=== PATIENT | female | born 1940 | race Caucasian/White ===

== ENCOUNTER 2017-11-11 08:17 | Emergency (ER) | payer MEDICARE ==
[~2017-11-11] VITALS: Ht 154.9 cm; Wt 74.8 kg
[~2017-11-11 08:17] MED LIST: ACEBUTOLOL HCL200 MG PO; LOSARTAN POTAS100 MG PO
[2017-11-11] MEDS ORDERED: CLONIDINE HCL 0.1 MG TAB PO ONE (08:30)
[2017-11-11 09:54] VITALS: BP 150/71
== END 2017-11-11 09:58 | disposition home or self-care (01) ==
LOC: ER 08:17
DX: I10 Essential (primary) hypertension (principal)
CPT/HCPCS: 99282

== ENCOUNTER 2017-12-26 10:18 | Emergency (ER) | payer MEDICARE ==
[~2017-12-26] VITALS: Ht 154.9 cm; Wt 75.3 kg
== END 2017-12-26 10:52 | disposition home or self-care (01) ==
LOC: FSED 10:18
DX: M54.5 Low back pain (principal); S39.012A Strain of muscle, fascia and tendon of lower back, initial encounter; G89.29 Other chronic pain
CPT/HCPCS: 81003; 99283

== ENCOUNTER 2021-07-15 17:07 | Emergency (ER) | payer MEDICARE ==
[~2021-07-15] VITALS: Ht 154.9 cm; Wt 75.3 kg
[2021-07-15 18:26] LABS: BASOPHILS # (AUTO) 0.1 (0.0-0.1); BASOPHILS % 0.9 % (0.0-1.0); EOSINOPHILS % 0.5 % (0.0-6.0); HEMATOCRIT 38.9 % (34.2-44.1); HEMOGLOBIN 12.5 g/dL (12.0-16.0); LYMPHOCYTES # (AUTO) 1.1 (1.0-3.2); LYMPHOCYTES % 15.8 % (18.0-39.1); MEAN CORPUSCULAR HGB CONC 32.1 g/dL (31-35); MEAN CORPUSCULAR VOLUME 99.5 fL (81-99); MONOCYTES # (AUTO) 0.5 (0.2-0.8); MONOCYTES % 7.4 % (4.4-11.3); NEUTROPHILS % 75.2 % (38.7-80.0); PLATELET COUNT 193 x10e3/uL (140-360); RED BLOOD COUNT 3.91 x10e6/uL (3.6-5.1); RED CELL DISTRIBUTION WIDTH 13.5 % (11.7-14.4)
[2021-07-15 18:47] LABS: ALBUMIN 3.7 g/dL (3.5-5.0); ALBUMIN/GLOBULIN RATIO 1.2 (0.8-2.0); CALCIUM 9.4 mg/dL (8.4-10.2); CREATININE, SERUM 1.14 mg/dL (0.57-1.11)
[2021-07-15 18:53] LABS: CREATINE KINASE MB 4.4 ng/mL (0-5.0)
[2021-07-15 18:56] LABS: CLARITY,URINE SL CLOUDY (CLEAR); COLOR,URINE YELLOW (YELLOW); KETONES,URINE TRACE (NEGATIVE); LEUKOCYTE ESTERASE ,URINE SMALL (NEGATIVE); NITRITE,URINE NEGATIVE (NEGATIVE); PROTEIN,URINE DIPSTICK NEGATIVE (NEGATIVE); URINE UROBILINOGEN 0.2 mg/dL (0.2 - 1)
[2021-07-15 19:11] LABS: BACTERIA,URINE MODERATE /HPF; EPITHELIAL CELLS,URINE MODERATE /LPF
== END 2021-07-15 19:48 | disposition home or self-care (01) ==
LOC: ER 17:52
DX: R51.9 Headache, unspecified (principal); N39.0 Urinary tract infection, site not specified
CPT/HCPCS: 36415; 70450; 71045; 80053; 81001; 82550; 82553; 84484; 85025; 93005; 99284

== ENCOUNTER 2021-12-29 10:29 | Emergency (ER) | payer MEDICARE ==
[~2021-12-29] VITALS: Ht 152.4 cm; Wt 63.5 kg
[2021-12-29] MEDS ORDERED: MECLIZINE HCL 12.5 MG TAB PO ONE (10:45)
[2021-12-29 10:58] LABS: BASOPHILS # (AUTO) 0.1 (0.0-0.1); BASOPHILS % 0.7 % (0.0-1.0); EOSINOPHILS # (AUTO) 0.1 (0.0-0.4); EOSINOPHILS % 0.9 % (0.0-6.0); HEMATOCRIT 37.5 % (34.2-44.1); HEMOGLOBIN 11.9 g/dL (12.0-16.0); LYMPHOCYTES # (AUTO) 0.9 (1.0-3.2); LYMPHOCYTES % 12.4 % (18.0-39.1); MEAN CORPUSCULAR HEMOGLOBIN 31.6 pg (28-32); MEAN CORPUSCULAR HGB CONC 31.7 g/dL (31-35); MEAN CORPUSCULAR VOLUME 99.5 fL (81-99); MONOCYTES # (AUTO) 0.5 (0.2-0.8); MONOCYTES % 7.3 % (4.4-11.3); NEUTROPHILS # (AUTO) 5.8 (2.1-6.9); NEUTROPHILS % 78.4 % (38.7-80.0); PLATELET COUNT 219 x10e3/uL (140-360); RED BLOOD COUNT 3.77 x10e6/uL (3.6-5.1); RED CELL DISTRIBUTION WIDTH 13.2 % (11.7-14.4)
[2021-12-29 11:04] LABS: CLARITY,URINE CLEAR (CLEAR); COLOR,URINE YELLOW (YELLOW); KETONES,URINE NEGATIVE (NEGATIVE); LEUKOCYTE ESTERASE ,URINE SMALL (NEGATIVE); NITRITE,URINE NEGATIVE (NEGATIVE); PROTEIN,URINE DIPSTICK NEGATIVE (NEGATIVE); URINE UROBILINOGEN 0.2 mg/dL (0.2 - 1)
[2021-12-29 11:20] LABS: INR 1.04; PROTHROMBIN TIME 14.5 seconds (11.9-14.5)
[2021-12-29 11:21] LABS: ALBUMIN 3.4 g/dL (3.5-5.0); ALBUMIN/GLOBULIN RATIO 0.9 (0.8-2.0); ANION GAP 13.1 mmol/L (8-16); CALCIUM 9.4 mg/dL (8.4-10.2); CREATININE, SERUM 1.04 mg/dL (0.57-1.11); POTASSIUM 4.1 mmol/L (3.5-5.1)
[2021-12-29 11:23] LABS: BACTERIA,URINE FEW /HPF; EPITHELIAL CELLS,URINE RARE /LPF
[2021-12-29] MEDS ORDERED: IOPAMIDOL 370 MG/ML 100 ML INFUS..BTL INJ ONE (11:40)
[2021-12-29] MEDS ORDERED: SODIUM CHLORIDE 0.9% 500ML 500 ML IV STA (11:42)
[2021-12-29] MEDS ORDERED: MECLIZINE HCL25 MG PO (12:53)
[2021-12-29 13:03] VITALS: BP 129/90
== END 2021-12-29 13:05 | disposition home or self-care (01) ==
LOC: ER 10:37
DX: R42 Dizziness and giddiness (principal); I10 Essential (primary) hypertension; I48.91 Unspecified atrial fibrillation; Z20.822 Contact with and (suspected) exposure to COVID-19
CPT/HCPCS: 36415; 70450; 70496; 70498; 80053; 81001; 84484; 85025; 85610; 93005; 99283; J8597; Q9967; U0002

== ENCOUNTER 2024-07-10 16:48 | Observation (INO) | payer MEDICARE ==
[~2024-07-10] VITALS: Ht 154.9 cm; Wt 75.3 kg
[~2024-07-10 16:48] MED LIST changes: +MECLIZINE HCL25 MG PO
[2024-07-10 16:59] VITALS: TEMP 98.5
[2024-07-10] MEDS: HYDRALAZINE HCL 20 MG/ML VIAL IV ONE ×2 (17:51→19:49)
[2024-07-10] MEDS ORDERED: CLONIDINE HCL 0.1 MG TAB PO PRN (20:45)
[2024-07-10 21:26] VITALS: PULSE 80; RESP 18
[2024-07-10 22:43] VITALS: BP 188/69; RESP 18; TEMP 97.6; O2SAT 99
[2024-07-10] MEDS: CARVEDILOL 12.5 MG TAB PO SCH (22:55)
[2024-07-10] MEDS: NIFEDIPINE CR 30 MG TAB PO SCH (22:56)
[2024-07-10 23:00] VITALS: BP 188/69; PULSE 84; RESP 18; TEMP 97.6; O2SAT 99
[2024-07-10] MEDS ORDERED: OLMESARTAN-HCT1 EACH PO (23:00)
[2024-07-10] MEDS ORDERED: AMLODIPINE BESYL5 MG PO (23:00)
[2024-07-11 03:08] VITALS: BP 188/69; PULSE 84; RESP 18; TEMP 97.6; O2SAT 99
[2024-07-11] MEDS: NIFEDIPINE 10 MG CAP PO STA ×2 (04:05)
[2024-07-11 04:16] VITALS: BP 140/90; PULSE 68; RESP 17; TEMP 97.6; O2SAT 97
[2024-07-11 06:12] LABS: BASOPHILS % 0.4 % (0.0-1.0); EOSINOPHILS # (AUTO) 0.1 (0.0-0.4); EOSINOPHILS % 2.1 % (0.0-6.0); HEMATOCRIT 32.7 % (34.2-44.1); HEMOGLOBIN 10.1 g/dL (12.0-16.0); LYMPHOCYTES # (AUTO) 1.5 (1.0-3.2); LYMPHOCYTES % 22.7 % (18.0-39.1); MEAN CORPUSCULAR HEMOGLOBIN 31.1 pg (28-32); MEAN CORPUSCULAR HGB CONC 30.9 g/dL (31-35); MEAN CORPUSCULAR VOLUME 100.6 fL (81-99); MONOCYTES # (AUTO) 0.7 (0.2-0.8); MONOCYTES % 10.8 % (4.4-11.3); NEUTROPHILS # (AUTO) 4.3 (2.1-6.9); NEUTROPHILS % 63.9 % (38.7-80.0); PLATELET COUNT 175 x10e3/uL (140-360); RED BLOOD COUNT 3.25 x10e6/uL (3.6-5.1); RED CELL DISTRIBUTION WIDTH 13.6 % (11.7-14.4); WHITE BLOOD COUNT 6.79 x10e3/uL (4.8-10.8)
[2024-07-11 07:14] LABS: ANION GAP 15.4 mmol/L (8-16); CALCIUM 9.6 mg/dL (8.4-10.2); CREATININE, SERUM 1.25 mg/dL (0.57-1.11)
[2024-07-11 07:23] LABS: POTASSIUM 3.4 mmol/L (3.5-5.1)
[2024-07-11 07:47] LABS: TROPONIN I 0.025 ng/mL (0-0.300)
[2024-07-11 08:00] VITALS: BP 140/90; PULSE 68; RESP 17; TEMP 97.6; O2SAT 97
[2024-07-11 09:11] VITALS: BP 147/53; PULSE 66; RESP 19; TEMP 98.2; O2SAT 98
[2024-07-11] MEDS ORDERED: ACETAMINOPHEN 325 MG TAB PO PRN (11:45)
[2024-07-11] MEDS ORDERED: ONDANSETRON HCL INJ 2MG/ML 2ML 2 MG/ML VIAL IV PRN (11:45)
[2024-07-11 12:16] VITALS: BP 138/51; PULSE 63; RESP 20; TEMP 98.2; O2SAT 100
[2024-07-11] MEDS ORDERED: NIFEDIPINE ER30 M1 PO (12:57)
[2024-07-11 13:53] LABS: TROPONIN I 0.02 ng/mL (0-0.300)
[2024-07-11 15:20] VITALS: BP 123/50; PULSE 64; RESP 18; TEMP 98; O2SAT 97
== END 2024-07-11 15:52 | disposition home or self-care (01) ==
LOC: FSED 17:00 → INTOOBSV 20:21 → ERHOLD 20:21 → MED/SURG3 22:21
PROVIDERS: ADMIT Internal Medicine; ATTEND Internal Medicine
DX: I16.0 Hypertensive urgency (principal); I10 Essential (primary) hypertension; N17.9 Acute kidney failure, unspecified; I48.91 Unspecified atrial fibrillation; I45.10 Unspecified right bundle-branch block; Z79.899 Other long term (current) drug therapy
CPT/HCPCS: 36415; 80048; 80053; 80061; 81003; 82550; 84484 ×2; 85025 ×2; 93005; 99284; G0378 ×2; J0360

== ENCOUNTER 2025-01-27 16:46 | Emergency (ER) | payer MEDICARE ==
[~2025-01-27] VITALS: Ht 154.9 cm; Wt 70.3 kg
[~2025-01-27 16:46] MED LIST changes: +AMLODIPINE BESYL5 MG PO; +NIFEDIPINE ER30 M1 PO; +OLMESARTAN-HCT1 EACH PO
[2025-01-27] MEDS: ASPIRIN 81 MG CHEW TAB PO ONE (17:10)
[2025-01-27 17:14] LABS: BASOPHILS % 0.3 % (0.0-1.0); EOSINOPHILS % 2.2 % (0.0-6.0); LYMPHOCYTES % 17.6 % (18.0-39.1); MONOCYTES % 9.9 % (4.4-11.3); NEUTROPHILS % 69.7 % (38.7-80.0); RED CELL DISTRIBUTION WIDTH 13.7 % (11.7-14.4)
[2025-01-27 17:37] LABS: EST GLOMERULAR FILTRATION RATE 33.0 ML/MIN (>=60)
[2025-01-27 18:30] VITALS: PULSE 64; RESP 18
[2025-01-27] MEDS: SODIUM CHLORIDE 0.9% 1000ML 1,000 ML IV STA (19:35)
[2025-01-27 19:36] VITALS: BP 171/86
[2025-01-27] MEDS: HYDRALAZINE HCL 20 MG/ML VIAL IV PRN (19:36)
[2025-01-27 21:23] VITALS: PULSE 70; RESP 14; TEMP 97.9; O2SAT 98
== END 2025-01-27 21:25 | disposition home or self-care (01) ==
LOC: ER 16:51
DX: R07.89 Other chest pain (principal); I10 Essential (primary) hypertension; I48.91 Unspecified atrial fibrillation; M54.9 Dorsalgia, unspecified; G89.29 Other chronic pain
CPT/HCPCS: 36415; 71045; 80053; 82550; 83690; 84484; 85025; 93005; 99284; J0360; J7030